=== PATIENT | male | born 1950 | race Caucasian/White ===

== ENCOUNTER 2017-07-24 07:04 | Day surgery (SDC) | payer OTHER ==
[~2017-07-24] VITALS: Ht 175.3 cm; Wt 81.6 kg
--- NOTE | ~2017-07-24 | OP ---
PATIENT NAME: WINSOME FORBES MEDICAL RECORD: [id number] :52 LOCATION:[facility] ADMISSION DATE: SURGEON: MONTEZ WARD MD DATE OF OPERATION: 07/24/2017 PREOPERATIVE DIAGNOSES: 1. Rotator cuff tear of the right shoulder. 2. SLAP lesion of the right shoulder. 3. Spinoglenoid paralabral cyst. 4. Impingement syndrome. 5. Acromioclavicular arthritis. POSTOPERATIVE DIAGNOSIS: 1. Rotator cuff tear of the right shoulder. 2. SLAP lesion of the right shoulder. 3. Spinoglenoid paralabral cyst. 4. Impingement syndrome. 5. Acromioclavicular arthritis. PROCEDURES: 1. Arthroscopic rotator cuff repair. 2. Arthroscopic SLAP repair. 3. Decompression of paralabral cyst. 4. Arthroscopic distal clavicle excision done through separate incision -- 1 cm. 5. Arthroscopic subacromial decompression with acromioplasty and bursectomy. SURGEON: Montez Ward MD ANESTHESIA: General. INTRAOPERATIVE COMPLICATIONS: None. SUMMARY OF PATHOLOGIC FINDINGS: Consistent with the patient's MRI. The patient had an anterior labral tear with a paralabral cyst. The patient also had a rotator cuff tear, type 3 acromion with impingement syndrome and excoriation of the coracoacromial ligament and grade IV chondromalacia of the distal clavicle. OPERATIVE SUMMARY IN DETAIL: After obtaining the appropriate preoperative orthopedic surgery consent as well as anesthetic consultation, evaluation and clearance, the patient was brought to the operating room and placed on the operating table in supine position. After general laryngeal mask airway was administered, the patient was placed in a left lateral decubitus position. All pressure points well padded to include down leg peroneal pad and axillary roll. The patient was held firmly to the operative table using the vacuum pack suction system. Right upper extremity and shoulder were prepped and draped in routine sterile fashion. The arm was held in the Arthrex traction boom at 30 degrees of forward flexion, 30 degrees of abduction with 10 pounds of traction laterally. Arthroscopy was established in the glenohumeral joint from posterior portal. Anterior portal was established in the anterior safe interval. Diagnostic arthroscopy did reveal the above findings. Transrotator cuff portal was created. The arthroscopic resector was then used to debride the superior and anterior aspect of the glenoid for reattachment of the labrum. After debriding the anterior and superior aspect of the labrum under arthroscopic visualization, the resector was taken down the neck and the edge of the ganglion cyst could be OPERATIVE REPORT [id number] WINSOME FORBES seen. At this point, it was debrided with the arthroscopic resector. Having completed the debridement with the arthroscopic resector, the labrum was then reattached anteriorly using the 2.9 PushLocks and labral tape from Arthrex. Good reapproximation of the labrum was achieved with an anchor at the 3 o'clock and 1 o'clock position both anterior to the biceps tendon. Having completed this, attention was turned to the rotator cuff. Rotator cuff supraspinatus tendinous footprint was decorticated using a 5-0 bur and portions of this lamina rotator cuff tear were debrided. Attention was then turned to the subacromial space. After Arthroscopy was established in the subacromial space, the Mcarthur tissue ablation system was utilized to denude the undersurface of the acromion of all soft tissue elements and release the coracoacromial ligament. A 5-0 barrel bur was then used to perform acromioplasty at the level of acromioclavicular joint. Through a separate anterior arthroscopic portal under direct arthroscopic visualization then, the distal clavicle was excised 1 cm. Inferior osteophytes were taken off the medial edge of the acromion. Having completed this, attention was re-turned to the rotator cuff. Further decortication was carried out followed by passing a mattress labral tape into the rotator cuff medial to the laminar tearing. The sutures were then anchored with a 5.5 SwiveLock from Arthrex. Having completed this, arthroscopy portals were closed in routine interrupted fashion using 4-0 Prolene. Sterile dressings were applied. The patient was awakened and taken to recovery room in stable condition. All final needle and sponge counts were correct. TRANSINT:[id number] Voice Confirmation ID: [id number] DOCUMENT ID: [id number] SYLVIA PELAYO, MONTEZ ABBOTT at 1518 CC: [id number] DICTATION DATE: 07/24/1747 [employer] MACHINE FEEDER: 07/24/17 1412 [facility] 07/24/17 [facility] [address] [place] [address]
[2017-07-24 07:57] VITALS: BP 168/86; Ht 175.3 cm; Wt 81.6 kg
[2017-07-24 08:21] LABS: HEMATOCRIT 48.8 % (42.0-54.0); HEMOGLOBIN 16.3 g/dL (13.5-17.5); MCH 30.5 pg (26.0-34.0); MCHC 33.4 g/dL (31.0-37.0); MCV 91.4 fL (80.0-100.0); MEAN PLATELET VOLUME 11.4 fL (7.4-10.4); RBC 5.34 10x6/uL (4.20-6.10); RDW 12.9 % (11.5-14.5); WBC 7.1 10x3/uL (4.8-10.8)
[2017-07-24] MEDS ORDERED: HYDROCODONE-APA1 TAB PO (09:40)
== END 2017-07-24 12:30 | disposition home or self-care (01) ==
LOC: D.OPS 07:04 → D.PAN 13:15 → D.OPS 18:00 → D.PAN 18:00
PROVIDERS: Anesthesiology
DX: S43.491A Other sprain of right shoulder joint, initial encounter (principal); M75.121 Complete rotator cuff tear or rupture of right shoulder, not specified as traumatic; M67.411 Ganglion, right shoulder; Z01.812 Encounter for preprocedural laboratory examination; I10 Essential (primary) hypertension; G47.30 Sleep apnea, unspecified

== ENCOUNTER 2018-12-31 09:50 | Day surgery (SDC) | payer MEDICARE ==
[2018-12-30 14:18] LABS: HEMATOCRIT 47.9 % (42.0-54.0); HEMOGLOBIN 15.7 g/dL (13.5-17.5); MCH 28.8 pg (26.0-34.0); MCHC 32.8 g/dL (31.0-37.0); MCV 87.9 fL (80.0-100.0); MEAN PLATELET VOLUME 9.8 fL (7.4-10.4); RBC 5.45 10x6/uL (4.20-6.10); RDW 18.1 % (11.5-14.5); WBC 8.2 10x3/uL (4.8-10.8)
[~2018-12-31] VITALS: Ht 175.3 cm; Wt 81.6 kg
[~2018-12-31 09:50] MED LIST: HYDROCODONE-APA1 TAB PO; NORVASC5 MG PO
[2018-12-31 10:25] VITALS: BP 155/89; Ht 175.3 cm; Wt 81.6 kg
[2018-12-31] MEDS ORDERED: DILAUDID2 MG PO (15:11)
--- NOTE | 2019-01-01 14:29 | OP ---
PATIENT NAME: WINSOME FORBES MEDICAL RECORD: [id number] :52 LOCATION:[facility] ADMISSION DATE: SURGEON: MONTEZ WARD MD DATE OF OPERATION: 12/31/2018 PREOPERATIVE DIAGNOSIS: Medial meniscus tear of the right knee. POSTOPERATIVE DIAGNOSIS: Medial meniscus tear of the right knee. PROCEDURE: Arthroscopic partial medial meniscectomy. SURGEON: Montez Ward MD ANESTHESIA: General. INTRAOPERATIVE COMPLICATIONS: None. SUMMARY OF PATHOLOGIC FINDINGS: The patient has a complex tear of the posterior horn of medial meniscus with [id number] chondromalacia of any portion of the knee. OPERATIVE SUMMARY IN DETAIL: After obtaining the appropriate preoperative orthopedic surgery consent as well as anesthetic consultation, evaluation and clearance, the patient was brought to the operating room and placed on the operating table in a supine position. After adequate general laryngeal mask airway was administered, tourniquet was placed on the proximal aspect of the right lower extremity. Right lower extremity was then prepped and draped in usual sterile fashion. Routine inferolateral portal was established followed by superomedial and inferomedial portal. Diagnostic arthroscopy showed the patient to have a complex tear of the posterior horn of medial meniscus. Combination of meniscotomes as well as 4.0 resector was utilized to debride the medial meniscus back to stable meniscal elements. Careful evaluation of the meniscus showed the patient to have this pathology only and the meniscus was debrided, so it was nicely stable without residual tearing. Having completed this, the knee was insufflated with 30 cc of 0.25% Marcaine with epinephrine and 40 mg of Depo-Medrol. Arthroscopy portals were closed in routine interrupted fashion using 4-0 Prolene. Sterile dressings were applied. The patient was awakened and taken to recovery room in stable condition. All final needle and sponge counts were correct. TRANSINT:[id number] Voice Confirmation ID: [id number] DOCUMENT ID: [id number] SYLVIA PELAYO, MONTEZ ABBOTT at 1429 CC: [id number] DICTATION DATE: 01/01/19 1152 [employer] LITHOGRAPHER: 01/01/19 1239 [place] [facility] [place] [address]
== END 2018-12-31 17:10 | disposition home or self-care (01) ==
LOC: D.OPS 09:50 → D.PAN 12:15 → D.OPS 12:45 → D.PAN 15:15 → D.OPS 15:15 → D.PAN 18:20
PROVIDERS: Anesthesiology; ATTEND Orthopaedic Surgery
DX: S83.221A Peripheral tear of medial meniscus, current injury, right knee, initial encounter (principal); X58.XXXA Exposure to other specified factors, initial encounter